=== PATIENT | male | born 1960 | race Caucasian/White ===

== ENCOUNTER 2016-06-21 09:37 | Emergency (ER) | payer BC ==
[2016-06-21 09:41] VITALS: BP 107/71; PULSE 48; RESP 20; O2SAT 99
[2016-06-21] MEDS ORDERED: PROPARACAINE HCL 0.5% OPHT SOLN 15 ML BTL RIGHT EYE ONE (10:15)
--- NOTE | 2016-06-21 10:17 | PD ---
HPI Chief Complaint: Eye Problems/Injury Time Seen by Provider: 10:05 Travel History International Travel<30 days: No Contact w/Intl Traveler<30days: No Traveled to known affect area: No History of Present Illness HPI The patient is a 56-year-old male who presents emergency department for right eye pain and irritation since yesterday morning. The patient states she has a history of corneal abrasions and corneal ulcerations in the past, but denies any acute trauma to the right eye. The patient states his irritation started yesterday and has progressively worsened. He does complain of mild redness to the medial aspect the right eye over the sclera/conjunctiva with his right eye pain. He also complains of mild photophobia, but denies any pain with extraocular movements. The patient does complain of mild vision changes to the right eye, but was able to see the Snellen eye chart with a vision of 20/ 20 on the right eye. The patient does have a history of previous Lasik surgery to both eyes approximately 10 years ago. The patient does follow with an lime burner, Dr. Cooney, however, he states his lime burner office was not open today. PFSH Past Medical History Diminished Hearing: No Influenza Vaccination: No Past Surgical History Genitourinary Surgery: Yes (vasectomy) Social History Alcohol Use: No Tobacco Use: No Substance Use: No Allergies-Medications (Allergen,Severity, Reaction): Coded Allergies: No Known Allergies (Unverified , 06/21/16) Reported Meds & Prescriptions Reported Meds & Active Scripts Active No Active Prescriptions or Reported Medications Review of Systems Except as stated in HPI: all other systems reviewed are Neg Eyes: Positive: Blurred Vision, Photophobia, Pain, No: Drainage, Blindness HENT: Positive: Headaches (mild discomfort in the right periorbital area), No : Neck Pain Gastrointestinal: No: Nausea, Vomiting Skin: No Rash Physical Exam Narrative GENERAL: Awake, alert, nontoxic-appearing 56-year-old male who appears his stated age and is in no acute respiratory distress. SKIN: Warm and dry. HEAD: Atraumatic. Normocephalic. EYES: Pupils equal and round. Pupils are 4 mm bilateral and reactive. EOMs are intact. Visual gray are symmetric. The right eye is mildly injected over the medial sclera/conjunctiva. Vision on the Snellen eye chart revealed left 20/15, right 20/20, bilaterally 20/20. One drop of proparacaine was applied to the right eye and fluoroscein staining was applied. The eye was then examined under slit lamp examination. Examination reveals cloudy uptake within the iris, inferior to the pupil, from the 5 to 7 o'clock position that is cloudy Green under fluoroscein examination, there does not appear to be a true ulcer or abrasion. ENT: No nasal bleeding or discharge. Mucous membranes pink and moist. NECK: Trachea midline. No JVD. MUSCULOSKELETAL: No obvious deformities. No clubbing. No cyanosis. No edema. NEUROLOGICAL: Awake and alert. No obvious cranial nerve deficits. Motor grossly within normal limits. Normal speech. PSYCHIATRIC: Appropriate mood and affect; insight and judgment normal. Data Data Last Documented VS Vital Signs Date Time Temp Pulse Resp B/P Pulse Ox O2 Delivery O2 Flow Rate FiO2 06/21/16 09:41 48 20 107/71 99 Orders Proparacaine 0.5% Opth Soln (Alcaine 0.5 (06/21/16 10:15) [facility] Medical Decision Making Medical Screen Exam Complete: Yes Emergency Medical Condition: Yes Medical Record Reviewed: Yes Differential Diagnosis Differential diagnosis includes uveitis, optic neuritis, scleritis, episcleritis , Narrative Course One drop of proparacaine was applied to the right eye. Patient then had fluoroscein staining applied to the right eye and slit-lamp examination was performed. Examination revealed uptake at the 5 to 7 o'clock position of the iris, just inferior to the pupil, with no visible deficit such as a large ulcer or abrasion. Cloudy appearance surround and they uptake. Therefore, I'll call was placed to the on-call lime burner, Dr. Roper, at 10:33 AM. I discussed the patient with Dr. Roper who agrees with placing the patient on Tobrex drops 4 times a day and follow-up with his lime burner or with her in the office tomorrow. The patient agrees and understands the plan of care. Diagnosis Primary Impression: Acute right eye pain Referrals: Kellie Roper MD Additional Instructions: Possibilities include keratitis/uveitis of the right eye. Tobrex drops 4 times a day as directed. Follow-up with your lime burner or Dr. Roper tomorrow. Med/Other Pt SpecificInfo: Prescription(s) given Scripts Tobramycin-Dexamethasone Opth Drops (Tobradex Opth Drops)0.3-0.1 % Susp1 Drop RIGHT EYE QID #1 BOTTLE Ref 0 Prov:Bib Marin MD 06/21/16 Disposition: 01 DISCHARGE HOME Condition: Stable Bib Marin MD Jun 21, 2016 10:17
[2016-06-21] MEDS ORDERED: TOBRO RIGHT EYE (11:33)
== END 2016-06-21 11:41 | disposition home or self-care (01) ==
LOC: PHED 09:37
DX: H57.11 Ocular pain, right eye (principal)
CPT/HCPCS: 99283